=== PATIENT | male | born 1970 | race Caucasian/White ===

== ENCOUNTER 2018-06-19 09:39 | Emergency (ER) | payer BC ==
--- NOTE | 2018-06-19 10:11 | RAD ---
PORTABLE CHEST: History: Fall. FINDINGS: Heart size is within normal limits considering portable technique. Mediastinal structures are unremar kable. The lungs are clear of infiltrate. No rib fractures identified. IMPRESSION: No active intrathoracic disease. POS: [facility]
[2018-06-19 10:12] LABS: #Eosinphils 0.3 thou/uL (0.0-0.7); #Lymphocytes 1.2 thou/uL (1.20-3.40); #Monocytes 0.4 thou/uL (0.11-0.59); #Neutrophils 3.4 thou/uL (1.40-6.50); %Basophils 0.7 % (0.0-1.0); %Eosinophils 5.7 % (0.0-10.0); %Lymphocytes 21.9 % (21.0-51.0); %Monocytes 7.3 % (0.0-10.0); %Neutrophils 64.5 % (42.0-75.0); Hemoglobin 16.2 g/dL (14.0-18.0); Mean Corpuscular HGB CONC 34.6 g/dL (32.0-36.0); Mean Corpuscular Hemoglobin 31.1 pg (27.0-31.0); Mean Corpuscular Volume 89.8 fL (78.0-98.0); Mean Platelet Volume 8.4 fL (7.4-10.4); Platelet Count 185 thou/uL (130-400); RBC Distribution Width 11.7 % (11.5-14.5); Red Blood Cell (RBC) Count 5.21 mill/uL (4.70-6.10); White Blood Cell (WBC) Count 5.3 thou/uL (4.8-10.8)
[2018-06-19 10:33] LABS: ALT (SGPT) 37 U/L (8-55); AST (SGOT) 26 U/L (5-34); Albumin 4.5 g/dL (3.5-5.0); Alkaline Phosphatase 127 U/L (40-150); Anion Gap 10 mmol/L (10-20); BUN (Urea Nitrogen) 13 mg/dL (8.9-20.6); Bilirubin, Total 1.8 mg/dL (0.2-1.2); CK (CPK) 59 U/L (30-200); Calc. Creatinine Clearance 0 mL/min (70-130); Calcium 9.3 mg/dL (7.8-10.44); Carbon Dioxide 29 mmol/L (22-29); Chloride 106 mmol/L (98-107); Estimated GFR-MDRD 83; Globulin 2.9 g/dL (2.4-3.5); Glucose 96 mg/dL (70-105); Potassium 3.9 mmol/L (3.5-5.1); Protein, Total 7.4 g/dL (6.0-8.3); Sodium 141 mmol/L (136-145)
[2018-06-19] MEDS ORDERED: Nitroglycerin 2% Ointment 1 INCH/1 GM Packet ONE (10:34)
[2018-06-19 10:38] LABS: CKMB 0.3 ng/mL (0-6.6); Troponin I Less than 0.010 ng/mL (< 0.028)
[2018-06-19 13:15] LABS: Troponin I Less than 0.010 ng/mL (< 0.028)
--- NOTE | 2018-06-21 14:10 | EKG ---
Test Reason : Blood Pressure : / mmHG Vent. Rate : 059 BPM Atrial Rate : 059 BPM P-R Int : 116 ms QRS Dur : 092 ms QT Int : 426 ms P-R-T Axes : -06 -04 -02 degrees QTc Int : 421 ms Sinus bradycardia Otherwise normal ECG Confirmed by EVERARDO KHAN DO ([id number]), supervising film or videotape editor IRIS ROONEY ([id number]) on 06/21/2018 2:10:35 PM Referred By: Confirmed By:EVERARDO KHAN DO
--- NOTE | 2018-06-21 14:10 | EKG ---
Test Reason : Blood Pressure : / mmHG Vent. Rate : 069 BPM Atrial Rate : 069 BPM P-R Int : 120 ms QRS Dur : 102 ms QT Int : 396 ms P-R-T Axes : 015 -04 003 degrees QTc Int : 424 ms Normal sinus rhythm Normal ECG Confirmed by EVERARDO KHAN DO ([id number]), offline editor IRIS ROONEY ([id number]) on 06/21/2018 2:10:30 PM Referred By: Confirmed By:EVERARDO KHAN DO
== END 2018-06-19 13:44 | disposition home or self-care (01) ==
LOC: ERS 09:39
DX: R07.89 Other chest pain (principal); E03.9 Hypothyroidism, unspecified; F17.220 Nicotine dependence, chewing tobacco, uncomplicated; Z79.899 Other long term (current) drug therapy
CPT/HCPCS: 36415; 71045; 80053; 82553; 84484; 85025; 93005; 99406

== ENCOUNTER 2020-11-29 11:33 | Emergency (ER) | payer BC ==
[2020-11-29] MEDS ORDERED: Ketorolac Tromethamine 30 MG/ML VIAL ONE (12:56)
== END 2020-11-29 14:07 | disposition home or self-care (01) ==
LOC: ERS 11:33
DX: U07.1 COVID-19 (principal); E03.9 Hypothyroidism, unspecified; F17.220 Nicotine dependence, chewing tobacco, uncomplicated
CPT/HCPCS: 96374; J1885